=== PATIENT | female | born 1990 | race Caucasian/White ===

== ENCOUNTER 2019-10-10 06:15 | Inpatient (IN) | payer OTHER ==
[~2019-10-10] VITALS: Ht 177.8 cm; Wt 83.0 kg
[~2019-10-10 06:15] MED LIST: IRON240 MG PO; PRENATAL VITAM1 EACH PO; ZOLOFT50 MG PO
--- NOTE | 2019-10-10 10:07 | PR ---
[facility] [address] [place], [place] [address] Signed Progress Notes IP Datetime Report Generated by YUKI: 10/10/2019 10:07 PROGRESS NOTES: [id number] Impression: Slow Progression of Labor Procedures: Sterile Vag Exam Plan: Augmentation Informed Consent Obtain: Vaginal Delivery; Induction of Labor; Risks, Benefits and Alternatives Discussed VITAL SIGNS: [id number] Vital Signs: Reviewed; Within Normal Limits EXAM: [id number] Dilatation: 3.5 Effacement: 80 Station: -2 Uterine Contractions: irregular MEMBRANES: [id number] Membrane Status: Intact Comments: Minimal progress with inadequate contractions. Will begin low dose pitocin. Fetus A: [id number] FHR Baseline: 120 Variability: Moderate 6-25bpm Accelerations: 15X15 Decelerations: None FHR Category: Category I Presentation: Vertex Comments on Fetus A: No evidence of metabolic acidosis Fetus B: [id number] Signing Physician: Angelica Negro MD Copies: ~ *Electronically Signed* 10/10/19 ANGELICA BYERS MD PATIENT NAME: COY HARDWICK PROGRESS NOTE DATE OF : 86 PHYSICIAN: ANGELICA NEGRO MD RPT #: [id number] REPORT IS CONFIDENTIAL AND NOT TO BE RELEASED WITHOUT AUTHORIZATION
--- NOTE | 2019-10-11 08:29 | PR ---
[facility] [address] [facility] [place] [facility] [place], [place] [address] Signed PP Progress Notes Datetime Report Generated by YUKI: 10/11/2019 08:28 SUBJECTIVE: [id number] Pain: Within normal limits Vital Signs: [id number] Vital Signs: Reviewed; Within Normal Limits EXAM: [id number] Cardiovascular: Not Done Respiratory: Not Done Abdomen/Uterus: Abnormal Lochia: Normal Vulva/Perineum: Not Done Breasts: Not Done CVA Tenderness: Not Done Extremities: Normal Incision: Not Applicable Progress: Normal Exam Comments: Fundus firm, NT @ U-1. H/H 03/12.8, WBC 13.7, plat 264k IMPRESSION/PLAN/PROCEDURES: [id number] Impression: Normal progression Plan: Discharge Procedures: None Progress Notes: Doing well. She desires D/C later today. Signing Physician: Angelica Negro MD Copies: ~ *Electronically Signed* 10/11/19827 ANGELICA NEGRO MD PATIENT NAME: COY HARDWICK PROGRESS NOTE DATE OF : 86 PHYSICIAN: ANGELICA NEGRO MD RPT #: [id number] REPORT IS CONFIDENTIAL AND NOT TO BE RELEASED WITHOUT AUTHORIZATION
== END 2019-10-11 13:25 | disposition home or self-care (01) | DRG 807 ==
LOC: FBC 06:15
PROVIDERS: ADMIT Obstetrics & Gynecology
PROC: 10E0XZZ Delivery of Products of Conception, External Approach (ICD-10-PCS; principal; 2019-10-10)
PROC: 10907ZC Drainage of Amniotic Fluid, Therapeutic from Products of Conception, Via Natural or Artificial Opening (ICD-10-PCS; 2019-10-10)
PROC: 00HU33Z Insertion of Infusion Device into Spinal Canal, Percutaneous Approach (ICD-10-PCS; 2019-10-10)
PROC: 3E0R3BZ Introduction of Anesthetic Agent into Spinal Canal, Percutaneous Approach (ICD-10-PCS; 2019-10-10)
DX: O99.344 Other mental disorders complicating childbirth (principal); Z37.0 Single live birth; F41.9 Anxiety disorder, unspecified; Z3A.39 39 weeks gestation of pregnancy; Z79.899 Other long term (current) drug therapy; O34.43 Maternal care for other abnormalities of cervix, third trimester
CPT/HCPCS: 36415; 85027; A9270; J2590; J2795; J3010

== ENCOUNTER 2021-01-17 18:47 | Emergency (ER) | payer OTHER ==
[~2021-01-17] VITALS: Ht 177.8 cm; Wt 82.5 kg
== END 2021-01-17 22:03 | disposition home or self-care (01) ==
LOC: ED 18:47
DX: U07.1 COVID-19 (principal); R20.2 Paresthesia of skin; Z79.899 Other long term (current) drug therapy
CPT/HCPCS: 71045; 93005; 93010; 96372; 99284-25; J1885; U0003